=== PATIENT | male | born 1975 | race Hispanic/Latino ===

== ENCOUNTER 2022-04-17 18:13 | Observation (INO) | payer OTHER ==
[~2022-04-17] VITALS: Ht 172.7 cm; Wt 86.3 kg
[2022-04-17 19:14] LABS: BASOPHILS % (AUTO) 0.2 % (0.0-5.0); EOSINOPHILS % (AUTO) 1.5 % (0.0-8.0); HEMATOCRIT 43.5 % (42-54); LYMPHOCYTES % (AUTO) 34.6 % (21.0-51.0); MEAN CORPUSCULAR HEMOGLOBIN 28.4 pg (27.0-33.0); MEAN CORPUSCULAR HGB CONC 33.3 g/dL (32.0-36.0); MEAN CORPUSCULAR VOLUME 85.3 fL (79-99); MONOCYTES % (AUTO) 8.9 % (3.0-13.0); NEUTROPHILS % (AUTO) 54.6 % (40.0-77.0); PLATELET COUNT (AUTO) 235 K/uL (130-400); RED CELL DISTRIBUTION WIDTH 13.5 % (11.0-15.5)
[2022-04-17 19:22] LABS: POTASSIUM 3.8 mmol/L (3.5-5.1)
[2022-04-17 19:30] LABS: ALBUMIN 4.3 g/dL (3.5-5.0); TOTAL PROTEIN, SERUM 7.7 g/dL (6.0-8.3)
[2022-04-17] MEDS ORDERED: LACTULOSE 20 GM/30 ML UDCUP PO PRN (22:00)
[2022-04-17] MEDS ORDERED: NITROGLYCERIN 0.4 MG SL TAB SL PRN (22:00)
[2022-04-17] MEDS ORDERED: HYDRALAZINE 20MG/ML VIAL IV PRN (22:00)
[2022-04-17] MEDS ORDERED: ACETAMINOPHEN 325 MG TAB PO PRN (22:00)
[2022-04-17] MEDS ORDERED: ONDANSETRON 4MG INJ IVP PRN (22:00)
[2022-04-17 22:51] LABS: HEMOGLOBIN A1C 6.1 % (4.0-6.0)
[2022-04-17 23:00] LABS: THYROID STIMULATING HORMONE 1.17 uIU/mL (0.36-3.74)
[2022-04-17 23:09] LABS: AMPHET/METH SCREEN,URINE NEGATIVE (NEGATIVE); BARBITURATE SCREEN, URINE NEGATIVE (NEGATIVE); BENZODIAZEPINES SCREEN,URINE NEGATIVE (NEGATIVE); CANNABINOID SCREEN,URINE NEGATIVE (NEGATIVE); COCAINE SCREEN,URINE NEGATIVE (NEGATIVE); OPIATE SCREEN,URINE NEGATIVE (NEGATIVE); PHENCYCLIDINE SCREEN,URINE NEGATIVE (NEGATIVE)
[2022-04-17 23:50] VITALS: BP 164/89
[2022-04-18] VITALS (8 sets, daily range): BP systolic 116–153; BP diastolic 63–87
[2022-04-18 02:28] LABS: BASOPHILS % (AUTO) 0.1 % (0.0-5.0); EOSINOPHILS % (AUTO) 1.8 % (0.0-8.0); HEMATOCRIT 41.9 % (42-54); LYMPHOCYTES % (AUTO) 36.9 % (21.0-51.0); MEAN CORPUSCULAR HEMOGLOBIN 28.5 pg (27.0-33.0); MEAN CORPUSCULAR HGB CONC 33.2 g/dL (32.0-36.0); MEAN CORPUSCULAR VOLUME 85.9 fL (79-99); MONOCYTES % (AUTO) 8.5 % (3.0-13.0); NEUTROPHILS % (AUTO) 52.6 % (40.0-77.0); PLATELET COUNT (AUTO) 214 K/uL (130-400); RED BLOOD CELL COUNT(AUTO) 4.88 MIL/uL (4.50-6.20); RED CELL DISTRIBUTION WIDTH 13.8 % (11.0-15.5); WHITE BLOOD COUNT (AUTO) 6.7 K/uL (4.8-10.8)
[2022-04-18 02:43] LABS: CARBON DIOXIDE 29 mmol/L (21-32); CHLORIDE 104 mmol/L (101-111); CREATININE 1.2 mg/dL (0.5-1.5); CRP QUANTITATIVE < 2.00 mg/L (0.00-9.0); GLOMERULAR FILTR. RATE CALC 69 mL/min (>60); GLUCOSE,RANDOM 120 mg/dL (70-105); PHOSPHORUS 5.1 mg/dL (2.5-4.9); POTASSIUM 4.9 mmol/L (3.5-5.1); SODIUM SERUM 141 mmol/L (136-145); UREA NITROGEN, BLOOD 17 mg/dL (7-18)
[2022-04-18] MEDS: LACTATED RINGERS 1000ML 1,000 ML IV SCH ×2 (03:17→15:23)
[2022-04-18] MEDS ORDERED: NITROGLYCERIN 50MG VIAL ONE (13:04)
[2022-04-18] MEDS ORDERED: IOHEXOL-350 50ML VIAL IV ONE (13:04)
[2022-04-18] MEDS ORDERED: IOHEXOL 350 MG/ML 100ML INFUS..BTL IV ONE (13:04)
[2022-04-18] MEDS ORDERED: LIDOCAINE HCL 400MG/20ML VIAL ONE (13:05)
[2022-04-18] MEDS ORDERED: FENTANYL CITRATE PF 50 MCG/1 ML 2ML VIAL ONE (13:05)
[2022-04-18] MEDS ORDERED: MIDAZOLAM HCL 1 MG/ML 2ML VIAL ONE (13:05)
[2022-04-18] MEDS: ASPIRIN 325MG TAB PO SCH (13:30)
[2022-04-18] MEDS ORDERED: LABETALOL 20MG SYG IV ONE (14:23)
[2022-04-18] MEDS ORDERED: 0.9%NACL 1000ML 1,000 ML IV SCH (15:00)
[2022-04-18 16:18] LABS: INR 0.96 (0.85-1.15); PROTHROMBIN TIME 10.5 SEC (9.6-11.6)
[2022-04-18 16:19] LABS: PARTIAL THROMBOPLASTIN TIME 30.3 SEC (26.3-35.5)
[2022-04-18] MEDS ORDERED: ATORVASTATIN 40 MG TABLET ONE (19:27)
[2022-04-18] MEDS ORDERED: ATORVASTATIN 40 MG TABLET PO SCH (21:00)
[2022-04-19] VITALS: BP 112/72
[2022-04-19 04:00] VITALS: BP 118/64
[2022-04-19] MEDS: LACTATED RINGERS 1000ML 1,000 ML IV SCH (04:21)
[2022-04-19 08:00] VITALS: BP 125/70
[2022-04-19] MEDS: ASPIRIN 325MG TAB PO SCH (09:08)
== END 2022-04-19 10:45 | disposition home or self-care (01) ==
LOC: EDH 18:13 → EDHIP 22:00 → 4BH 23:20
PROVIDERS: ADMIT Internal Medicine Critical Care Medicine; ATTEND Internal Medicine Critical Care Medicine
DX: I25.110 Atherosclerotic heart disease of native coronary artery with unstable angina pectoris (principal); Z20.822 Contact with and (suspected) exposure to COVID-19; R55 Syncope and collapse; E78.5 Hyperlipidemia, unspecified; J98.11 Atelectasis; R73.03 Prediabetes; Z87.891 Personal history of nicotine dependence; Z79.899 Other long term (current) drug therapy
CPT/HCPCS: 99285; 83036; 84443; 84484 ×2; 80061; 80053; 80305; 85025 ×2; 87804 ×2; 36415 ×2; 87635; 71045; 93005 ×5; 93458; 96360; 96361; 83735; 84100; 80048; 85378; 85610; 85730; 85651; 86140; 93306; 93356; G0378 ×33; C9803; C1894 ×2; C1760; Q9965; J7120; J3010; J3490 ×2; J2250; J1644; Q9967 ×2; A4600; 99156; 99157

== ENCOUNTER 2022-10-19 12:09 | Observation (INO) | payer OTHER ==
[~2022-10-19] VITALS: Ht 167.6 cm; Wt 84.8 kg
[~2022-10-19 12:09] MED LIST: AEC81 PO; ATOR40TA69 PO; TRAM50TA4 PO
[2022-10-19 12:33] LABS: BASOPHILS % (AUTO) 0.2 % (0.0-5.0); EOSINOPHILS % (AUTO) 1.4 % (0.0-8.0); HEMATOCRIT 41.8 % (42-54); LYMPHOCYTES % (AUTO) 33.1 % (21.0-51.0); MEAN CORPUSCULAR HEMOGLOBIN 28.6 pg (27.0-33.0); MEAN CORPUSCULAR HGB CONC 33.5 g/dL (32.0-36.0); MEAN CORPUSCULAR VOLUME 85.3 fL (79-99); MONOCYTES % (AUTO) 7.9 % (3.0-13.0); PLATELET COUNT (AUTO) 214 K/uL (130-400)
[2022-10-19 12:46] LABS: CREATININE 1.1 mg/dL (0.5-1.5); POTASSIUM 3.9 mmol/L (3.5-5.1)
[2022-10-19 12:50] LABS: TOTAL PROTEIN, SERUM 7.2 g/dL (6.0-8.3)
[2022-10-19] MEDS ORDERED: 0.9%NACL 1000ML 1,000 ML IV ONE (13:00)
[2022-10-19] MEDS ORDERED: ASPIRIN 81MG CHEW TAB PO ONE (13:00)
[2022-10-19 13:13] LABS: APPEARANCE,URINE CLEAR (CLEAR); BILIRUBIN,URINE NEGATIVE (NEGATIVE); GLUCOSE, URINE (UA) NEGATIVE (NEGATIVE); KETONES,URINE NEGATIVE (NEGATIVE); LEUKOCYTE ESTERASE ,URINE NEGATIVE Leu/uL (NEGATIVE); NITRATE,URINE NEGATIVE (NEGATIVE); OCCULT BLOOD,URINE NEGATIVE (NEGATIVE); PH,URINE 8.5 (5.0-8.0); PROTEIN,URINE 20 mg/dL (NEGATIVE); UROBILINOGEN,URINE 0.2 mg/dL (0.2-1.0)
[2022-10-19 13:36] LABS: AMPHET/METH SCREEN,URINE NEGATIVE (NEGATIVE); BARBITURATE SCREEN, URINE NEGATIVE (NEGATIVE); BENZODIAZEPINES SCREEN,URINE NEGATIVE (NEGATIVE); CANNABINOID SCREEN,URINE NEGATIVE (NEGATIVE); COCAINE SCREEN,URINE NEGATIVE (NEGATIVE); OPIATE SCREEN,URINE NEGATIVE (NEGATIVE); PHENCYCLIDINE SCREEN,URINE NEGATIVE (NEGATIVE)
[2022-10-19 13:37] LABS: COLOR,URINE YELLOW (YELLOW)
[2022-10-19 13:40] LABS: MUCUS,URINE RARE LPF (None Seen); RBC,URINE 0-1 /HPF (0-1); WBC,URINE 0-1 /HPF (0-1)
[2022-10-19] MEDS ORDERED: ALPRAZOLAM 0.5 MG TABLET PO PRN (14:00)
[2022-10-19] MEDS ORDERED: MAGNESIUM 2GM PREMIX 50ML 50 ML IV PRN (14:00)
[2022-10-19] MEDS ORDERED: POLYETHYLENE GLYCOL 3350 17 GM POWD.PACK PO PRN (14:00)
[2022-10-19] MEDS ORDERED: KCL 20 MEQ ERTAB PO PRN (14:00)
[2022-10-19] MEDS ORDERED: NITROGLYCERIN 0.4 MG SL TAB SL PRN ×2 (14:00→20:30)
[2022-10-19] MEDS ORDERED: GUAIFENESIN SUGAR-FREE 100 MG/5 ML UDCUP PO PRN (14:00)
[2022-10-19] MEDS ORDERED: ARTIFICAL TEARS SOL 15 ML OP PRN (14:00)
[2022-10-19] MEDS ORDERED: ALBUTEROL 0.083% 2.5 MG/3 ML INH IH PRN (14:00)
[2022-10-19] MEDS ORDERED: HYDRALAZINE 25MG TABLET PO PRN (14:00)
[2022-10-19] MEDS ORDERED: DiphenhydrAMINE HCL 50 MG/ML VIAL IV PRN (14:00)
[2022-10-19] MEDS ORDERED: LOPERAMIDE HCL 2 MG CAP PO PRN (14:00)
[2022-10-19] MEDS ORDERED: ZOLPIDEM TARTRATE 5 MG TAB PO PRN (14:00)
[2022-10-19] MEDS ORDERED: POTASSIUM CHLORIDE 10% ELIXIR 20 MEQ/15 ML UDCUP PO PRN (14:00)
[2022-10-19] MEDS ORDERED: POTASSIUM CHLORIDE 20MEQ/100ML 100 ML IV PRN ×2 (14:00)
[2022-10-19] MEDS ORDERED: DOCUSATE SODIUM 100 MG CAP PO PRN (14:00)
[2022-10-19] MEDS ORDERED: ONDANSETRON 4MG INJ IV PRN (14:00)
[2022-10-19] MEDS ORDERED: DIPHENHYDRAMINE HCL 25 MG CAPSULE PO PRN (14:00)
[2022-10-19] MEDS ORDERED: ACETAMINOPHEN 325 MG TAB PO PRN ×2 (14:00)
[2022-10-19] MEDS ORDERED: LACTULOSE 20 GM/30 ML UDCUP PO PRN (14:00)
[2022-10-19] MEDS ORDERED: MORPHINE 2 MG SYG IVP PRN (14:30)
[2022-10-19] MEDS ORDERED: TRAMADOL HCL 50 MG TABLET PO PRN (14:30)
[2022-10-19] MEDS: PANTOPRAZOLE 40 MG TAB DR PO SCH ×2 (14:41→20:51)
[2022-10-19] MEDS: ENOXAPARIN SODIUM 40 MG/0.4 ML SYRINGE SQ SCH (14:41)
[2022-10-19] MEDS: IBUPROFEN 600 MG TABLET PO SCH ×2 (14:41→20:51)
[2022-10-19 17:15] VITALS: BP 150/78
[2022-10-19] MEDS ORDERED: RAMI10CA69 PO (17:34)
[2022-10-19] MEDS ORDERED: NITR0.4T50 SL (17:34)
[2022-10-19 20:00] VITALS: BP 137/77
[2022-10-19 23:25] VITALS: BP 118/68
[2022-10-20] MEDS: IBUPROFEN 600 MG TABLET PO SCH ×2 (02:50→08:51)
[2022-10-20 03:20] VITALS: BP 101/61
[2022-10-20 05:43] LABS: BASOPHILS % (AUTO) 0.2 % (0.0-5.0); EOSINOPHILS % (AUTO) 1.9 % (0.0-8.0); HEMATOCRIT 38.6 % (42-54); LYMPHOCYTES % (AUTO) 38.7 % (21.0-51.0); MEAN CORPUSCULAR HEMOGLOBIN 28.6 pg (27.0-33.0); MEAN CORPUSCULAR HGB CONC 32.6 g/dL (32.0-36.0); MEAN CORPUSCULAR VOLUME 87.5 fL (79-99); MONOCYTES % (AUTO) 7.6 % (3.0-13.0); NEUTROPHILS % (AUTO) 51.6 % (40.0-77.0); PLATELET COUNT (AUTO) 170 K/uL (130-400); RED BLOOD CELL COUNT(AUTO) 4.41 MIL/uL (4.50-6.20); RED CELL DISTRIBUTION WIDTH 14.2 % (11.0-15.5); WHITE BLOOD COUNT (AUTO) 5.2 K/uL (4.8-10.8)
[2022-10-20 05:56] LABS: CREATININE 0.9 mg/dL (0.5-1.5); POTASSIUM 4.7 mmol/L (3.5-5.1)
[2022-10-20 07:28] VITALS: BP 110/75
[2022-10-20] MEDS: ASPIRIN 81 MG EC TAB PO SCH (08:51)
[2022-10-20] MEDS: ATORVASTATIN 40 MG TABLET PO SCH (08:51)
[2022-10-20] MEDS: ENOXAPARIN SODIUM 40 MG/0.4 ML SYRINGE SQ SCH (08:51)
[2022-10-20] MEDS: FAMOTIDINE 20MG TAB PO SCH ×2 (08:51→21:51)
[2022-10-20] MEDS: PANTOPRAZOLE 40 MG TAB DR PO SCH ×2 (08:51→21:49)
[2022-10-20] MEDS: RAMIPRIL 10 MG PO SCH (09:00)
[2022-10-20 10:32] VITALS: BP 121/77
[2022-10-20 16:02] VITALS: BP 120/59
[2022-10-20 19:25] VITALS: BP 123/76
[2022-10-20 23:25] VITALS: BP 102/62
[2022-10-21 03:25] VITALS: BP 116/62
[2022-10-21 06:19] LABS: BASOPHILS % (AUTO) 0.2 % (0.0-5.0); EOSINOPHILS % (AUTO) 1.7 % (0.0-8.0); HEMATOCRIT 39.2 % (42-54); LYMPHOCYTES % (AUTO) 37.9 % (21.0-51.0); MEAN CORPUSCULAR HEMOGLOBIN 28.5 pg (27.0-33.0); MEAN CORPUSCULAR HGB CONC 32.9 g/dL (32.0-36.0); MEAN CORPUSCULAR VOLUME 86.5 fL (79-99); MONOCYTES % (AUTO) 8.5 % (3.0-13.0); NEUTROPHILS % (AUTO) 51.3 % (40.0-77.0); PLATELET COUNT (AUTO) 185 K/uL (130-400); RED BLOOD CELL COUNT(AUTO) 4.53 MIL/uL (4.50-6.20); RED CELL DISTRIBUTION WIDTH 13.9 % (11.0-15.5); WHITE BLOOD COUNT (AUTO) 5.2 K/uL (4.8-10.8)
[2022-10-21 06:59] LABS: ALBUMIN 3.3 g/dL (3.5-5.0); CREATININE 0.9 mg/dL (0.5-1.5); MAGNESIUM 1.8 mg/dL (1.80-2.40); POTASSIUM 4.7 mmol/L (3.5-5.1); TOTAL PROTEIN, SERUM 6.2 g/dL (6.0-8.3)
[2022-10-21 07:24] VITALS: BP 136/72
[2022-10-21] MEDS: ASPIRIN 81 MG EC TAB PO SCH (08:21)
[2022-10-21] MEDS: ATORVASTATIN 40 MG TABLET PO SCH (08:21)
[2022-10-21] MEDS: FAMOTIDINE 20MG TAB PO SCH (08:22)
[2022-10-21] MEDS: ENOXAPARIN SODIUM 40 MG/0.4 ML SYRINGE SQ SCH (08:22)
[2022-10-21] MEDS: PANTOPRAZOLE 40 MG TAB DR PO SCH (08:22)
[2022-10-21] MEDS: RAMIPRIL 10 MG PO SCH (08:27)
[2022-10-21] MEDS ORDERED: METOPROLOL SUCCINATE 25 MG TAB.SR.24H PO SCH (09:00)
[2022-10-21] MEDS ORDERED: METO-391 PO (10:43)
[2022-10-21 10:50] VITALS: BP 150/72
[2022-10-21] MEDS ORDERED: METOPROLOL SUCCINATE 50 MG TAB.SR.24H PO SCH (11:00)
[2022-10-21 15:48] VITALS: BP 133/75
[2022-10-21] MEDS ORDERED: METO50TA9 PO (16:20)
[2022-10-21] MEDS ORDERED: PANT40TA PO (16:20)
[2022-10-21] MEDS ORDERED: FAMO20TA8 PO (16:20)
== END 2022-10-21 17:00 | disposition home or self-care (01) ==
LOC: EDH 12:09 → EDHIP 13:59 → 3CH 17:15
PROVIDERS: ADMIT Internal Medicine Critical Care Medicine; ATTEND Internal Medicine Critical Care Medicine
DX: I25.110 Atherosclerotic heart disease of native coronary artery with unstable angina pectoris (principal); Z20.822 Contact with and (suspected) exposure to COVID-19; I49.5 Sick sinus syndrome; E78.5 Hyperlipidemia, unspecified; I11.0 Hypertensive heart disease with heart failure; I50.9 Heart failure, unspecified; R73.03 Prediabetes; Z87.891 Personal history of nicotine dependence; Z95.0 Presence of cardiac pacemaker; Z79.899 Other long term (current) drug therapy
CPT/HCPCS: 96372 ×3; 96360; 96361; 99285; 82550; 83735 ×3; 83874; 84484 ×2; 80053 ×2; 83880 ×2; 80305; 85025 ×3; 87880; 87804 ×2; 83605 ×2; 81001; 36415 ×3; 87635; 71045; 93306; 93005 ×3; 94664; 80048; G0378 ×50; C9803; J7030; J1650 ×3

== ENCOUNTER 2022-12-14 09:05 | Emergency (ER) | payer OTHER ==
[~2022-12-14] VITALS: Ht 170.2 cm; Wt 85.7 kg
[~2022-12-14 09:05] MED LIST changes: +FAMO20TA8 PO; +METO-391 PO; +METO50TA9 PO; +NITR0.4T50 SL; +PANT40TA PO; +RAMI10CA69 PO
[2022-12-14 09:21] LABS: BASOPHILS # (AUTO) 0.01 K/uL (0.00-0.20); BASOPHILS % (AUTO) 0.2 % (0.0-5.0); EOSINOPHILS # (AUTO) 0.08 K/uL (0.00-0.70); EOSINOPHILS % (AUTO) 1.4 % (0.0-8.0); HEMATOCRIT 42.3 % (42-54); IMMATURE GRANULOCYTE ABSOLUTE 0.02 K/uL (0-1); LYMPHOCYTES # (AUTO) 1.8 K/uL (1.0-4.8); LYMPHOCYTES % (AUTO) 31.3 % (21.0-51.0); MEAN CORPUSCULAR HEMOGLOBIN 29.1 pg (27.0-33.0); MEAN CORPUSCULAR HGB CONC 33.8 g/dL (32.0-36.0); MONOCYTES # (AUTO) 0.4 K/uL (0.1-1.0); MONOCYTES % (AUTO) 7.4 % (3.0-13.0); NEUTROPHILS # (AUTO) 3.5 K/uL (1.8-7.7); NEUTROPHILS % (AUTO) 59.4 % (40.0-77.0); PLATELET COUNT (AUTO) 206 K/uL (130-400); RED BLOOD CELL COUNT(AUTO) 4.92 MIL/uL (4.50-6.20); RED CELL DISTRIBUTION WIDTH 14.4 % (11.0-15.5); WHITE BLOOD COUNT (AUTO) 5.8 K/uL (4.8-10.8)
[2022-12-14 09:32] LABS: CREATININE 1.1 mg/dL (0.5-1.5); POTASSIUM 3.9 mmol/L (3.5-5.1)
[2022-12-14 09:36] LABS: ALBUMIN 4.1 g/dL (3.5-5.0); BILIRUBIN,TOTAL 0.7 mg/dL (0.2-1.0); TOTAL PROTEIN, SERUM 7.4 g/dL (6.0-8.3)
[2022-12-14 10:18] LABS: APPEARANCE,URINE CLEAR (CLEAR); BILIRUBIN,URINE NEGATIVE (NEGATIVE); GLUCOSE, URINE (UA) NEGATIVE (NEGATIVE); KETONES,URINE NEGATIVE (NEGATIVE); LEUKOCYTE ESTERASE ,URINE NEGATIVE Leu/uL (NEGATIVE); NITRATE,URINE NEGATIVE (NEGATIVE); OCCULT BLOOD,URINE NEGATIVE (NEGATIVE); PH,URINE 5.5 (5.0-8.0); PROTEIN,URINE NEGATIVE (NEGATIVE); UROBILINOGEN,URINE 0.2 mg/dL (0.2-1.0)
[2022-12-14 10:23] LABS: ADD UA MICROSCOPIC NO; COLOR,URINE YELLOW (YELLOW)
[2022-12-14 11:47] VITALS: BP 149/71; PULSE 60; RESP 12; O2SAT 99
== END 2022-12-14 11:49 | disposition home or self-care (01) ==
LOC: EDH 09:05
DX: I25.10 Atherosclerotic heart disease of native coronary artery without angina pectoris (principal); R07.89 Other chest pain; Z79.82 Long term (current) use of aspirin; Z79.899 Other long term (current) drug therapy; Z95.810 Presence of automatic (implantable) cardiac defibrillator
CPT/HCPCS: 36415; 71045; 80053; 81003; 83735; 84484; 85025; 93005

== ENCOUNTER 2023-01-30 21:01 | Emergency (ER) | payer OTHER | END 2023-01-30 22:45 | disposition left against medical advice (07) | LOC: EDH 21:01 | DX: R07.89 Other chest pain (principal); Z53.21 Procedure and treatment not carried out due to patient leaving prior to being seen by health care provider | CPT/HCPCS: 93005; 99281 ==

== ENCOUNTER 2023-03-11 06:05 | Day surgery (SDC) | payer OTHER ==
[2023-03-07 10:15] VITALS: BP 164/88; PULSE 76; RESP 20
[2023-03-07 10:30] LABS: BASOPHILS # (AUTO) 0.01 K/uL (0.00-0.20); BASOPHILS % (AUTO) 0.3 % (0.0-5.0); EOSINOPHILS # (AUTO) 0.06 K/uL (0.00-0.70); EOSINOPHILS % (AUTO) 1.5 % (0.0-8.0); HEMATOCRIT 41.3 % (42-54); IMMATURE GRANULOCYTE ABSOLUTE 0.01 K/uL (0-1); LYMPHOCYTES # (AUTO) 1.5 K/uL (1.0-4.8); LYMPHOCYTES % (AUTO) 37.6 % (21.0-51.0); MEAN CORPUSCULAR HEMOGLOBIN 28.6 pg (27.0-33.0); MEAN CORPUSCULAR HGB CONC 32.4 g/dL (32.0-36.0); MEAN CORPUSCULAR VOLUME 88.2 fL (79-99); MONOCYTES # (AUTO) 0.4 K/uL (0.1-1.0); MONOCYTES % (AUTO) 11.2 % (3.0-13.0); NEUTROPHILS # (AUTO) 1.9 K/uL (1.8-7.7); NEUTROPHILS % (AUTO) 49.1 % (40.0-77.0); PLATELET COUNT (AUTO) 206 K/uL (130-400); RED BLOOD CELL COUNT(AUTO) 4.68 MIL/uL (4.50-6.20); RED CELL DISTRIBUTION WIDTH 14.4 % (11.0-15.5); WHITE BLOOD COUNT (AUTO) 3.9 K/uL (4.8-10.8)
[2023-03-07 10:40] LABS: CREATININE 0.9 mg/dL (0.5-1.5); POTASSIUM 4.3 mmol/L (3.5-5.1)
[2023-03-07 10:57] LABS: INR < 0.93 (0.85-1.15); PROTHROMBIN TIME 10.3 SEC (9.6-11.6)
[2023-03-07 10:58] LABS: PARTIAL THROMBOPLASTIN TIME 29.5 SEC (26.3-35.5)
[~2023-03-11] VITALS: Ht 170.2 cm; Wt 87.6 kg
[2023-03-11] VITALS (9 sets, daily range): BP systolic 102–156; BP diastolic 62–82; PULSE 60–87; RESP 14–16
[~2023-03-11 06:05] MED LIST changes: +DILT180C77 PO; +DILT240C81 PO; -FAMO20TA8 PO; -METO-391 PO; -METO50TA9 PO; -PANT40TA PO; -RAMI10CA69 PO; -TRAM50TA4 PO
[2023-03-11] MEDS ORDERED: 0.9%NACL 1000ML 1,000 ML IV ONE (07:36)
[2023-03-11] MEDS ORDERED: LIDOCAINE HCL 1% MDV 50ML VIAL ONE (09:37)
[2023-03-11] MEDS ORDERED: MEPERIDINE-PF 25 MG/ML SYG ONE ×2 (09:37→10:26)
[2023-03-11] MEDS ORDERED: HEPARIN 10,000 UNIT/10ML (1,000 UNIT/ML) VIAL ONE (09:38)
[2023-03-11] MEDS ORDERED: MIDAZOLAM HCL 1 MG/ML 2ML VIAL ONE ×2 (09:38→10:26)
[2023-03-11] MEDS ORDERED: ISOPROTERENOL HCL 0.2 MG/ML AMP/VIAL/BAG ONE (10:03)
[2023-03-11] MEDS ORDERED: ADENOSINE 90MG VIAL IV ONE (11:32)
[2023-03-11] MEDS ORDERED: PROP225C8 PO (12:45)
== END 2023-03-11 15:35 | disposition home or self-care (01) ==
LOC: DAH 06:05
PROVIDERS: ATTEND Internal Medicine Cardiovascular Disease
DX: I47.19 Other supraventricular tachycardia (principal); E78.5 Hyperlipidemia, unspecified; I25.2 Old myocardial infarction; Z79.01 Long term (current) use of anticoagulants; Z79.899 Other long term (current) drug therapy; Z79.82 Long term (current) use of aspirin
CPT/HCPCS: 80048; 85025; 85610; 85730; 36415; 93005; 93620; 93623; 93613; 93621; C1894 ×5; C1732 ×2; C1730 ×3; A4649 ×2; J7030; J3490 ×2; J1644 ×2; J2250 ×2; J2175 ×2; J0153; A4215; A4222; A4221; A4663; A4216; A4606; A4223 ×3; 99156; 99157

== ENCOUNTER → 2023-10-16 | Outpatient (CLI) | payer OTHER ==
[~2023-10-16] MED LIST changes: -DILT240C81 PO; +PROP225C8 PO
[2023-10-16 12:19] LABS: INR <= 0.93 (0.85-1.15); PROTHROMBIN TIME 10.3 SEC (9.6-11.6)
== END | disposition home or self-care (01) ==
LOC: LAB 10:39
PROVIDERS: ATTEND Internal Medicine Cardiovascular Disease
DX: R79.1 Abnormal coagulation profile (principal)
CPT/HCPCS: 36415; 85610; 85730

== ENCOUNTER 2025-03-31 16:58 | Emergency (ER) | payer OTHER ==
[~2025-03-31] VITALS: Ht 172.7 cm; Wt 85.3 kg
[2025-03-31 18:01] VITALS: BP 140/71; PULSE 68; RESP 20; TEMP 98; O2SAT 99
[2025-03-31] MEDS: ORPHENADRINE 60MG/2ML IM ONE (18:07)
[2025-03-31] MEDS: LIDOCAINE 5% TOPICAL PATCH TP ONE (18:08)
--- NOTE | 2025-03-31 18:25 | ERN ---
General Chief Complaint: Back Pain or Injury Stated Complaint: BACK PAIN Time Seen by MD: 17:04 Source: patient History of Present Illness Initial Comments PATIENT IS A MALE COMING IN COMPLAINING OF BACK PAIN. LONG WITH THE BACK PAIN HE STATES THAT HE HAS BEEN HAVING BACK PAIN RADIATING DOWN THE RIGHT LEG. HE STATES THAT THE PAIN IS EXACERBATED WITH MOVEMENT. Allergies: Coded Allergies: bacitracin (Unverified Allergy, Unknown, 04/17/22) Home Meds Active Scripts Naproxen (Naproxen) 375 Mg Tablet, 375 MG PO BID for 7 Days, #14 TAB Prov:SPENCER PARR MD 03/31/25 Gabapentin (Gabapentin) 100 Mg Capsule, 1 CAP PO TID for 7 Days, #14 CAP 0 Refills Prov:SPENCER PARR MD 03/31/25 Propafenone HCl (Propafenone HCl) 225 Mg Cap.er.12h, 225 MG PO BID, #60 CAPSULE.DR 3 Refills Prov:GAYLA SIU MD 03/11/23 Reported Medications Diltiazem HCl (Diltiazem ER) 180 Mg Capsule.er, 180 MG PO DAILY, CAP 03/07/23 Nitroglycerin (Nitroglycerin) 0.4 Mg Tab.subl, 0.4 MG SL AD PRN for CHEST PAIN, TAB.SL 10/19/22 Aspirin (ASPIRIN 81 MG ECTAB) 81 Mg Ectab, 81 MG PO HS, TAB.EC 05/21/22 Atorvastatin Calcium (LIPITOR) 40 Mg Tablet, 40 MG PO HS, TAB 05/21/22 Past Medical History Past Medical History: Other Medical History Other: SICK SINUS SYNDROME Past Surgical History: Pacer/AICD Social History Social History: Negative ROS Dictation CONSTITUTIONAL: NO CHILLS, NO FEVER, NO WEAKNESS, NO DIAPHORESIS, NO MALAISE. HEAD/FACE: NO SIGNS OF TRAUMA. EENT: NO EYE PAIN, NO BLURRED VISION, NO TEARING, NO DOUBLE VISION, NO EAR PAIN, NO EAR DISCHARGE, NO NOSE PAIN, NO NASAL CONGESTION, NO THROAT PAIN, NO THROAT SWELLING, NO MOUTH PAIN. RESPIRATORY: NO COUGH, NO ORTHOPNEA, NO SOB, NO STRIDOR, NO WHEEZING. CARDIOVASCULAR: NO CHEST PAIN, NO EDEMA, NO PALPITATIONS, NO SYNCOPE. GASTROINTESTINAL/ABDOMINAL: NO ABDOMINAL PAIN, NO CONSTIPATION, NO DIARRHEA, NO NAUSEA, NO VOMITING. GENITOURINARY: NO ABNORMAL DISCHARGE, NO DYSURIA, NO FREQUENT URINATION, NO HEMATURIA. NO COMPLAINTS OF PAIN IN THE GENITALS. MUSCULOSKELETAL: BACK PAIN, NO GOUT, NO JOINT PAIN, NO JOINT SWELLING, NO MUSCLE PAIN, NO MUSCLE STIFFNESS, NO NECK PAIN. INTEGUMENTARY: NO CHANGE IN COLOR, NO CHANGE IN HAIR/NAILS, NO DRYNESS, NO LESION, NO LUMPS, NO RASH. NEUROLOGICAL/PSYCH: NO ANXIETY, NOT DEPRESSED, NO EMOTIONAL PROBLEM, NO HEADACHE, NO NUMBNESS, NO PRE-EXISTING DEFICIT, NO HISTORY OF SEIZURES, NO TREMORS, NO WEAKNESS. HEMATOLOGIC/LYMPHATIC: NOT ANEMIC, NO HISTORY OF BLOOD CLOTS, NO APPARENT BLEEDING, NO BRUISING, GLANDS NOT SWOLLEN. ALL SYSTEMS NEGATIVE, EXCEPT NOTED. Physical Exam Physical Exam Dictation VITAL SIGNS: REVIEWED. GENERAL APPEARANCE: ALERT, ORIENTED X3, NO ACUTE DISTRESS, OBESE. HEAD AND FACE: NON-TRAUMATIC. EYES: PERRL, PINK CONJUNCTIVAS, EYELID NO TRAUMA, ANTERIOR CHAMBER CLEAR. EARS: PINNAS INTACT AND NO SIGNS OF TRAUMA OR ERYTHEMA. EAR CANALS CLEAR AND NO DISCHARGE. TMS NO ERYTHEMA. NOSE: NO DISCHARGE, NO BLEEDING. OROPHARYNX: MOUTH NORMAL, TEETH NO CARIES, TONGUE PINK. PHARYNX CLEAR, NO ERYTHEMA. TONSILS NO EXUDATES, NO ABSCESSES NOTED. MUCOUS MEMBRANE MOIST. NECK: SUPPLE, NON-TENDER, NO THYROMEGALY, NO MASSES, NO JVD, NO BRUITS. BREAST: DEFERRED. CHEST: NO TENDERNESS, NO CREPITUS, NO PARADOXICAL MOVEMENT, NO RETRACTIONS. LUNGS: CLEAR, WELL-VENTILATED, SYMMETRIC, NO RALES, NO WHEEZING, NO RHONCHI, NO STRIDOR, GOOD BREATH SOUNDS BILATERALLY. HEART: REGULAR RATE, REGULAR RHYTHM, NO MURMUR, NO GALLOPS. VASCULAR: NO PERIPHERAL EDEMA. ABDOMEN: SOFT, POSITIVE BOWEL SOUNDS, NONDISTENDED, NO GUARDING, NONTENDER, NO REBOUND, NO MASSES NO HEPATOMEGALY, NO SPLENOMEGALY, NO MEJIA'S SIGN, NO HERNIAS. RECTAL: DEFERRED. GENITAL: DEFERRED. NEUROLOGICAL: NORMAL SPEECH, GROSS MOTOR FUNCTION INTACT, GROSS SENSORY FUNCTION INTACT. MUSCULOSKELETAL: NECK NONTENDER, FULL RANGE OF MOTION, SUPERVISOR DRYING AND WINDING, FULL RANGE OF MOTION. EXTREMITIES: NONTENDER, FULL RANGE OF MOTION. SKIN: COLOR PINK, DRY, NO TURGOR, NO RASH, NO LACERATIONS, NO ABRASIONS, NO CONTUSIONS. LYMPHATICS: DEFERRED. Results Laboratory and Microbiology Labs Reviewed?: Yes EKG/XRAY/US/CT/MRI X-RAY Comment LUMBAR X-RAY- L5-S1 HERNIATION WITH OSTEOPHYTES, MDM MDM: DIFFERENTIAL DIAGNOSIS: LUMBAR STRAIN, RIGHT-SIDED SCIATICA,HERNIATED DISK RATIONALE: TESTS CONSIDERED AND ORDERED SECONDARY TO SHARED DECISION MAKING INCLUDE: PREVIOUS OUTSIDE RECORDS REVIEWED: OLD ER VISITS. RISK OF COMPLICATION AND/OR MORBIDITY OR MORTALITY OF PATIENT MANAGEMENT: NONE MEDICATIONS-PER MEDICATION RECONCILIATION NEED FOR HOSPITALIZATION: PATIENT DOES NOT MEET CRITERIA FOR HOSPITALIZATION. NEED FOR EMERGENCY MAJOR/MINOR SURGERY: NO PATIENT IS A 49-YEAR-OLD MALE COMING IN COMPLAINING OF BACK PAIN. PER PATIENT THAT HAS BACK PAIN HAS BEEN ONGOING FOR A COUPLE OF DAYS. LONG WITH THE HE STATES THAT HE HAS BEEN RIGHT GLUTEAL PAIN RADIATING DOWN THE LEG. X-RAY DID NOT DISCLOSE ANY ACUTE FINDINGS. PATIENT RECEIVED MEDICATIONS FOR LUMBAR STRAIN AND RIGHT-SIDED SCIATICA. WE WILL BE DISCHARGED IN STABLE CONDITION. NO RADICULOPATHY NOTED. ED Course Orders Procedure Category Date Status Time Lumbar Spine 2-3vws RAD 03/31/25 Taken 17:07 Orphenadrine Citrate PHA 03/31/25 Complete (Norflex) 17:30 Ketorolac PHA 03/31/25 Complete Tromethamine 30mg/Ml 17:30 Lidocaine (Lidoderm PHA 03/31/25 Complete Patch 5%) 17:30 Gabapentin 100 Mg Cap PHA 03/31/25 Complete (Neurontin 100 Mg 18:37 Current Medications Medications (Trade) Dose Ordered Sig/Mike Route PRN Reason Start Time Stop Time Status Last Admin Dose Admin Gabapentin (NEURontin 100 mg CAP) 100 mg ONCE STAT PO 03/31/25 18:37 03/31/25 18:38 DC Ketorolac Tromethamine (toRADol) 30 mg ONCE ONCE IM 03/31/25 17:30 03/31/25 17:31 DC 03/31/25 18:08 Lidocaine (Lidoderm Patch 5%) 1 patch ONCE ONCE TP 03/31/25 17:30 03/31/25 17:31 DC 03/31/25 18:08 Orphenadrine Citrate (Norflex) 60 mg ONCE ONCE IM 03/31/25 17:30 03/31/25 17:31 DC 03/31/25 18:07 Vital Signs Date Time Temp Pulse Resp B/P (MAP) Pulse Ox O2 Delivery O2 Flow Rate FiO2 03/31/25 18:01 98.1 68 20 140/71 99 Room Air* 0 21 03/31/25 17:06 97.2 76 16 152/77 98 Room Air DX & DISP Disposition: Discharge Departure Impression: Primary Impression: Right-sided low back pain with sciatica Additional Impression: Herniated disc Condition: Stable Scripts Naproxen (Naproxen) 375 Mg Tablet 375 MG PO BID for 7 Days, #14 TAB Prov: SPENCER PARR MD 03/31/25 Gabapentin (Gabapentin) 100 Mg Capsule 1 CAP PO TID for 7 Days, #14 CAP 0 Refills Prov: SPENCER PARR MD 03/31/25 Additional Instructions: FOLLOW-UP WITH PRIMARY CARE PROVIDER IN 1 TO 2 DAYS. TAKE MEDICATIONS DIRECTED HERE IN THE EMERGENCY ROOM. OKAY TO CONTINUE HOME MEDICATIONS UNLESS OTHERWISE DISCUSSED DURING YOUR VISIT IN THE EMERGENCY ROOM TODAY. RETURN TO YOUR NEAREST EMERGENCY ROOM IF SYMPTOMS WORSEN OR IF THERE IS NO IMPROVEMENT. CALL 911 IF YOU NEED IMMEDIATE ASSISTANCE. TAKE TYLENOL [id number] NEEDED AND IF NO CONTRAINDICATIONS ARE PRESENT. INCREASE ORAL HYDRATION. A WOUND CULTURE OR URINE CULTURE WAS ORDERED HERE IN THE EMERGENCY ROOM DEPARTMENT PLEASE FOLLOW-UP WITH PRIMARY CARE PROVIDER AND ADVISE THEM TO GET REPORTS FROM OUR FACILITY. IF YOU HAD ANY CLARIBEL WRAP/SPLINTS THAT WERE APPLIED HERE, PLEASE DO NOT REMOVE THEM UNTIL YOU SEE YOUR PRIMARY CARE OR SPECIALTY. REFERRALS: Referrals: PATTI BELL MD (PCP) JEAN-PIERRE VILLEGAS MD Time of Disposition: 18:41 SPENCER PARR MD Mar 31, 2025 18:24
--- NOTE | 2025-03-31 21:01 | HMCIMG ---
EXAM: CR Lumbar Spine, 2 View. CLINICAL HISTORY: BACK PAIN COMPARISON: None provided. FINDINGS: Straightening of the lumbar spine is seen with loss of lumbar lordosis, possibly due to paraspinal spasm. Degenerative changes at multiple levels in the form of multilevel anterior marginal osteophytes. Reduction in the intervertebral disc space is seen at the L5-S1 level. No fracture dislocation. Mild generalised osteopenia.The soft tissues are unremarkable. IMPRESSION: No acute lumbar spine abnormality is evident. Lumbar spondylosis. /Riley
== END 2025-03-31 18:51 | disposition home or self-care (01) ==
LOC: EDH 16:58
DX: M54.41 Lumbago with sciatica, right side (principal); M51.26 Other intervertebral disc displacement, lumbar region; Z88.1 Allergy status to other antibiotic agents; Z79.899 Other long term (current) drug therapy; Z79.82 Long term (current) use of aspirin; Z95.810 Presence of automatic (implantable) cardiac defibrillator
CPT/HCPCS: 99284; 72100; 96372 ×2; J1885; J2360